=== PATIENT | male | born 2000 | race Caucasian/White ===

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

== ENCOUNTER 2022-04-23 07:34 | Outpatient (CLI) | payer BC ==
[2022-04-23] MEDS ORDERED: Iopamidol-370 76% 500 ML 1 ML ONE (14:50)
== END 2022-04-23 07:35 | disposition home or self-care (01) ==
LOC: BICCT 07:34
PROVIDERS: ATTEND Physician Assistant Medical
DX: R10.11 Right upper quadrant pain (principal); R10.12 Left upper quadrant pain; R10.84 Generalized abdominal pain
CPT/HCPCS: 74177; Q9967